=== PATIENT | female | born 1945 | race Caucasian/White ===

== ENCOUNTER 2022-01-17 07:24 | Emergency (ER) | payer MEDICARE ==
[2022-01-17 09:05] LABS: #Eosinphils 0.1 thou/uL (0.0-0.7); #Lymphocytes 0.7 thou/uL (1.20-3.40); #Monocytes 0.4 thou/uL (0.11-0.59); %Basophils 0.1 % (0.0-1.0); %Lymphocytes 12.6 % (21.0-51.0); %Monocytes 7.1 % (0.0-10.0); %Neutrophils 78.1 % (42.0-75.0); Hemoglobin 11.4 g/dL (12.0-16.0); Mean Corpuscular HGB CONC 33.6 g/dL (32.0-36.0); Mean Corpuscular Hemoglobin 34.2 pg (27.0-31.0); Mean Platelet Volume 6.6 fL (7.4-10.4); Platelet Count 339 10x3/uL (130-400); RBC Distribution Width 12.6 % (11.5-14.5); Red Blood Cell (RBC) Count 3.33 mill/uL (4.20-5.40); White Blood Cell (WBC) Count 5.2 10x3/uL (4.8-10.8)
[2022-01-17 09:31] LABS: ALT (SGPT) Less than 7 U/L (8-55); AST (SGOT) 17 U/L (5-34); Albumin 4.1 g/dL (3.4-4.8); Alkaline Phosphatase 137 U/L (40-110); Anion Gap 12 mmol/L (10-20); BUN (Urea Nitrogen) 16 mg/dL (9.8-20.1); Bilirubin, Total 0.5 mg/dL (0.2-1.2); Calc. Creatinine Clearance 0 mL/min (70-130); Calcium 9.3 mg/dL (7.8-10.44); Carbon Dioxide 24 mmol/L (23-31); Chloride 107 mmol/L (98-107); Estimated GFR 81; Glucose 104 mg/dL (83-110); Lipase 10 U/L (8-78); Magnesium 2.3 mg/dL (1.6-2.6); Potassium 4.1 mmol/L (3.5-5.1); Protein, Total 7.1 g/dL (5.8-8.1); Sodium 139 mmol/L (136-145)
[2022-01-17 10:33] LABS: Bacteria/HPF None Seen HPF (None Seen); Bilirubin Negative (Negative); Blood, Urine Trace (Negative); Clarity Clear (Clear); Glucose, Urine (Dipstick) Normal (Negative); Ketone, Urine Negative (Negative); Leukocyte 75 Leu/uL (Negative); Nitrite Negative (Negative); Protein, Urine (Dipstick) 10 mg/dL (Neg-Trace); Specific Gravity, Urine 1.014 (1.002-1.036); Urobilinogen Normal mg/dL (Less than 2); WBC/HPF 0-3 HPF (0-3)
[2022-01-17] MEDS ORDERED: Iopamidol-370 76% 500 ML 1 ML ONE (11:14)
[2022-01-17] MEDS ORDERED: Ketorolac Tromethamine 30 MG/ML VIAL ONE (11:34)
== END 2022-01-17 13:05 | disposition home or self-care (01) ==
LOC: ERS 07:24
DX: S22.060A Wedge compression fracture of T7-T8 vertebra, initial encounter for closed fracture (principal); M54.6 Pain in thoracic spine; R79.1 Abnormal coagulation profile; X58.XXXA Exposure to other specified factors, initial encounter
CPT/HCPCS: 36415; 71046; 71275; 72070; 72100; 80053; 81003; 81015; 83690; 83735; 83880; 84443; 84484; 85025; 85379; 93005; 96374; J1885; Q9967

== ENCOUNTER 2022-01-30 15:54 | Emergency (ER) | payer MEDICARE ==
[2022-01-30] MEDS ORDERED: Acetaminophen 325 MG TAB ONE (16:35)
[2022-01-30] MEDS ORDERED: traMADol HCl 50 MG TAB ONE (16:35)
== END 2022-01-30 18:07 | disposition home or self-care (01) ==
LOC: ERS 15:54
DX: S22.068A Other fracture of T7-T8 thoracic vertebra, initial encounter for closed fracture (principal); X58.XXXA Exposure to other specified factors, initial encounter
CPT/HCPCS: 99283

== ENCOUNTER 2022-02-05 07:39 | Outpatient (CLI) | payer MEDICARE | END 2022-02-05 07:40 | disposition home or self-care (01) | LOC: TBSIIMAG 07:39 | PROVIDERS: ATTEND Specialist | DX: S22.060A Wedge compression fracture of T7-T8 vertebra, initial encounter for closed fracture (principal); M80.08XA Age-related osteoporosis with current pathological fracture, vertebra(e), initial encounter for fracture | CPT/HCPCS: 72146 ==

== ENCOUNTER 2022-02-07 12:04 | Emergency (ER) | payer MEDICARE ==
[2022-02-07] MEDS ORDERED: Ondansetron ODT 4 MG TAB ONE ×2 (14:28→14:53)
[2022-02-07] MEDS ORDERED: HYDROcodone/Acetaminophen 5/325 mg Tablet ONE (14:28)
[2022-02-07] MEDS ORDERED: Ketorolac Tromethamine 30 MG/ML VIAL ONE (14:28)
== END 2022-02-07 16:07 | disposition home or self-care (01) ==
LOC: ERS 12:04
DX: S22.069G Unspecified fracture of T7-T8 vertebra, subsequent encounter for fracture with delayed healing (principal)
CPT/HCPCS: 96372; 99283; J1885; Q0162

== ENCOUNTER 2022-02-13 14:13 | Outpatient (CLI) | payer MEDICARE | END 2022-02-13 14:14 | disposition home or self-care (01) | LOC: BICMAMMO 14:13 | PROVIDERS: ATTEND Physician Assistant | DX: M80.00XA Age-related osteoporosis with current pathological fracture, unspecified site, initial encounter for fracture (principal) | CPT/HCPCS: 77080 ==

== ENCOUNTER 2022-03-21 04:43 | Emergency (ER) | payer MEDICARE | END 2022-03-21 07:05 | disposition left against medical advice (07) | LOC: ERS 04:43 | DX: Z53.21 Procedure and treatment not carried out due to patient leaving prior to being seen by health care provider (principal) ==

== ENCOUNTER 2022-03-27 15:27 | Emergency (ER) | payer MEDICARE ==
[~2022-03-27 15:27] MED LIST: Iopamidol-370 76% 500 ML 1 ML ONE
[2022-03-27 16:20] LABS: #Lymphocytes 1.1 thou/uL (1.20-3.40); #Monocytes 0.3 thou/uL (0.11-0.59); %Basophils 0.6 % (0.0-1.0); %Eosinophils 0.8 % (0.0-10.0); %Lymphocytes 30.5 % (21.0-51.0); %Monocytes 9.3 % (0.0-10.0); %Neutrophils 58.8 % (42.0-75.0); Hemoglobin 13.6 g/dL (12.0-16.0); Mean Corpuscular HGB CONC 34.9 g/dL (32.0-36.0); Mean Corpuscular Hemoglobin 35.5 pg (27.0-31.0); Platelet Count 281 10x3/uL (130-400); RBC Distribution Width 11.6 % (11.5-14.5); Red Blood Cell (RBC) Count 3.83 mill/uL (4.20-5.40); White Blood Cell (WBC) Count 3.5 10x3/uL (4.8-10.8)
[2022-03-27 16:46] LABS: ALT (SGPT) 10 U/L (8-55); AST (SGOT) 21 U/L (5-34); Albumin 4.7 g/dL (3.4-4.8); Alkaline Phosphatase 136 U/L (40-110); Anion Gap 16 mmol/L (10-20); BUN (Urea Nitrogen) 25 mg/dL (9.8-20.1); Bilirubin, Total 0.4 mg/dL (0.2-1.2); Calc. Creatinine Clearance 0 mL/min (70-130); Carbon Dioxide 21 mmol/L (23-31); Chloride 105 mmol/L (98-107); Estimated GFR 76; Globulin 3.1 g/dL (2.4-3.5); Glucose 98 mg/dL (83-110); Potassium 3.9 mmol/L (3.5-5.1); Protein, Total 7.8 g/dL (5.8-8.1); Sodium 138 mmol/L (136-145)
[2022-03-27] MEDS ORDERED: Diazepam 10 MG/2 ML SYRINGE ONE (16:54)
[2022-03-27] MEDS ORDERED: Acetaminophen 500 MG TAB ONE (16:54)
[2022-03-27] MEDS ORDERED: Ondansetron PF 4 MG/2 ML Vial ONE (16:54)
[2022-03-27] MEDS ORDERED: Ketorolac Tromethamine 30 MG/ML VIAL ONE (18:20)
== END 2022-03-27 19:22 | disposition home or self-care (01) ==
LOC: ERS 15:27
DX: M54.6 Pain in thoracic spine (principal); R07.9 Chest pain, unspecified; D72.819 Decreased white blood cell count, unspecified; I10 Essential (primary) hypertension
CPT/HCPCS: 36415; 71045; 71275; 74174; 80053; 83880; 84484; 85025; 93005; 96374; 96375; J1885; J2405; J3360; Q9967

== ENCOUNTER 2022-09-08 17:45 | Emergency (ER) | payer MEDICARE ==
[~2022-09-08 17:45] MED LIST changes: -Iopamidol-370 76% 500 ML 1 ML ONE; +Iopamidol-370 76% 500 ML MDV (1 ML CHARGE) ONE
[2022-09-08] MEDS ORDERED: fentaNYL 50 mcg/mL 1 mL Vial ONE (18:13)
[2022-09-08 18:22] LABS: #Eosinphils 0.1 thou/uL (0.0-0.7); #Monocytes 0.4 thou/uL (0.11-0.59); #Neutrophils 1.6 thou/uL (1.40-6.50); %Basophils 0.3 % (0.0-1.0); %Eosinophils 1.6 % (0.0-10.0); %Lymphocytes 32.5 % (21.0-51.0); %Monocytes 12.5 % (0.0-10.0); %Neutrophils 53.1 % (42.0-75.0); Hemoglobin 12.9 g/dL (12.0-16.0); Mean Corpuscular HGB CONC 35.1 g/dL (32.0-36.0); Mean Corpuscular Hemoglobin 34.2 pg (27.0-31.0); Mean Corpuscular Volume 97.3 fl (78.0-98.0); Mean Platelet Volume 8.5 fL (7.4-10.4); Platelet Count 237 10x3/uL (130-400); RBC Distribution Width 12.1 % (11.5-14.5); Red Blood Cell (RBC) Count 3.77 mill/uL (4.20-5.40); White Blood Cell (WBC) Count 3.1 10x3/uL (4.8-10.8)
[2022-09-08 18:44] LABS: ALT (SGPT) Less than 7 U/L (8-55); AST (SGOT) 17 U/L (5-34); Albumin 4.5 g/dL (3.4-4.8); Alkaline Phosphatase 123 U/L (40-110); Anion Gap 17 mmol/L (10-20); BUN (Urea Nitrogen) 19 mg/dL (9.8-20.1); Bilirubin, Total 0.3 mg/dL (0.2-1.2); Calc. Creatinine Clearance 0 mL/min (70-130); Calcium 9.7 mg/dL (7.8-10.44); Carbon Dioxide 24 mmol/L (23-31); Chloride 100 mmol/L (98-107); Estimated GFR 71; Globulin 2.7 g/dL (2.4-3.5); Glucose 98 mg/dL (83-110); Lipase 17 U/L (8-78); Potassium 3.9 mmol/L (3.5-5.1); Protein, Total 7.2 g/dL (5.8-8.1); Sodium 137 mmol/L (136-145)
== END 2022-09-08 20:33 | disposition home or self-care (01) ==
LOC: ERS 17:45
DX: S22.069A Unspecified fracture of T7-T8 vertebra, initial encounter for closed fracture (principal); I10 Essential (primary) hypertension; X58.XXXA Exposure to other specified factors, initial encounter
CPT/HCPCS: 71045; 71275; 80053; 83690; 83880; 84484; 85025; 93005; 96374; 99284; J3010; Q9967

== ENCOUNTER 2022-10-04 12:53 | Outpatient (CLI) | payer MEDICARE | END 2022-10-04 12:54 | disposition home or self-care (01) | LOC: BICMRI 12:53 | PROVIDERS: ATTEND Specialist | DX: S22.060G Wedge compression fracture of T7-T8 vertebra, subsequent encounter for fracture with delayed healing (principal); M54.14 Radiculopathy, thoracic region; M48.04 Spinal stenosis, thoracic region; M40.204 Unspecified kyphosis, thoracic region | CPT/HCPCS: 72146 ==

== ENCOUNTER 2022-10-10 10:22 | Emergency (ER) | payer MEDICARE ==
[2022-10-10] MEDS ORDERED: fentaNYL 50 mcg/mL 1 mL Vial ONE (10:49)
[2022-10-10 10:54] LABS: #Eosinphils 0.1 thou/uL (0.0-0.7); #Monocytes 0.4 thou/uL (0.11-0.59); #Neutrophils 1.9 thou/uL (1.40-6.50); %Basophils 0.6 % (0.0-1.0); %Eosinophils 4.1 % (0.0-10.0); %Lymphocytes 28.8 % (21.0-51.0); %Monocytes 12.2 % (0.0-10.0); %Neutrophils 54.3 % (42.0-75.0); Hematocrit 34.7 % (36.0-47.0); Mean Corpuscular HGB CONC 34.6 g/dL (32.0-36.0); Mean Corpuscular Hemoglobin 34.1 pg (27.0-31.0); Mean Corpuscular Volume 98.6 fl (78.0-98.0); Mean Platelet Volume 8.8 fL (7.4-10.4); Platelet Count 246 10x3/uL (130-400); RBC Distribution Width 12.5 % (11.5-14.5); Red Blood Cell (RBC) Count 3.52 mill/uL (4.20-5.40); White Blood Cell (WBC) Count 3.4 10x3/uL (4.8-10.8)
[2022-10-10 11:20] LABS: ALT (SGPT) Less than 7 U/L (8-55); AST (SGOT) 13 U/L (5-34); Albumin 4.5 g/dL (3.4-4.8); Alkaline Phosphatase 123 U/L (40-110); Anion Gap 13 mmol/L (10-20); BUN (Urea Nitrogen) 18 mg/dL (9.8-20.1); Bilirubin, Total 0.3 mg/dL (0.2-1.2); Calc. Creatinine Clearance 0 mL/min (70-130); Calcium 9.7 mg/dL (7.8-10.44); Carbon Dioxide 26 mmol/L (23-31); Chloride 106 mmol/L (98-107); Estimated GFR 72; Globulin 2.4 g/dL (2.4-3.5); Glucose 93 mg/dL (83-110); Potassium 3.9 mmol/L (3.5-5.1); Protein, Total 6.9 g/dL (5.8-8.1); Sodium 141 mmol/L (136-145)
[2022-10-10 11:59] LABS: PTT 26.8 sec (22.9-36.1); Prothrombin Time 13.3 sec (12.0-14.7)
[2022-10-10 12:31] LABS: Bacteria/HPF Rare-Few HPF (None Seen); Bilirubin Negative (Negative); Blood, Urine Negative (Negative); CAUTI Indications for Culture Pelvic or flank pain; Clarity Extra Turbid (Clear); Glucose, Urine (Dipstick) Normal (Negative); Ketone, Urine Negative (Negative); Leukocyte Negative Leu/uL (Negative); Nitrite Negative (Negative); Protein, Urine (Dipstick) 50 mg/dL (Neg-Trace); RBC/HPF 0-3 HPF (0-3); Specific Gravity, Urine 1.022 (1.002-1.036); Squamous Epithelial 0-3 HPF (0-3); Urobilinogen Normal mg/dL (Less than 2); WBC/HPF None Seen HPF (0-3)
[2022-10-10 12:32] LABS: Urine Culture Reflex No No
== END 2022-10-10 13:44 | disposition home or self-care (01) ==
LOC: ERS 10:22
DX: S22.062A Unstable burst fracture of T7-T8 vertebra, initial encounter for closed fracture (principal); G20 Parkinson's disease; I10 Essential (primary) hypertension
CPT/HCPCS: 71045; 71275; 74174; 81001; 84484; 85610; 85652; 85730; 86140; 93005; J3010; 80053; 84443; 85025; 96374; Q9967

== ENCOUNTER 2022-10-16 00:37 | Emergency (ER) | payer MEDICARE ==
[2022-10-16] MEDS ORDERED: fentaNYL 50 mcg/mL 1 mL Vial ONE (01:54)
[2022-10-16] MEDS ORDERED: Diazepam 5 MG TAB ONE (01:59)
[2022-10-16] MEDS ORDERED: Lidocaine 4% Patch TD SCH (03:15)
[2022-10-16] MEDS ORDERED: Ketorolac Tromethamine 30 MG/ML VIAL ONE (03:29)
== END 2022-10-16 03:43 | disposition home or self-care (01) ==
LOC: ERS 00:37
DX: M54.9 Dorsalgia, unspecified (principal); G20 Parkinson's disease; I10 Essential (primary) hypertension
CPT/HCPCS: 71045; J3010; 96374; 96375; J1885

== ENCOUNTER 2022-11-07 13:47 | Outpatient (CLI) | payer MEDICARE | END 2022-11-07 13:48 | disposition home or self-care (01) | LOC: RAD 13:47 | PROVIDERS: ATTEND Nurse Practitioner Family | DX: S22.069G Unspecified fracture of T7-T8 vertebra, subsequent encounter for fracture with delayed healing (principal); M43.8X4 Other specified deforming dorsopathies, thoracic region | CPT/HCPCS: 72120 ==

== ENCOUNTER 2022-11-11 12:14 | Inpatient (IN) | payer MEDICARE ==
[2022-11-11] MEDS ORDERED: fentaNYL 50 mcg/mL 1 mL Vial ONE ×2 (13:02→16:40)
[2022-11-11 13:41] LABS: #Monocytes 0.2 thou/uL (0.11-0.59); #Neutrophils 1.8 thou/uL (1.40-6.50); %Eosinophils 1.5 % (0.0-10.0); %Monocytes 8.5 % (0.0-10.0); %Neutrophils 69.2 % (42.0-75.0); Hematocrit 32.9 % (36.0-47.0); Hemoglobin 11.2 g/dL (12.0-16.0); Mean Corpuscular Hemoglobin 34.1 pg (27.0-31.0); Mean Corpuscular Volume 100.3 fl (78.0-98.0); Mean Platelet Volume 8.8 fL (7.4-10.4); Platelet Count 267 10x3/uL (130-400); RBC Distribution Width 12.2 % (11.5-14.5); Red Blood Cell (RBC) Count 3.28 mill/uL (4.20-5.40); White Blood Cell (WBC) Count 2.6 10x3/uL (4.8-10.8)
[2022-11-11 14:12] LABS: ALT (SGPT) Less than 7 U/L (8-55); AST (SGOT) 16 U/L (5-34); Albumin 4.1 g/dL (3.4-4.8); Alkaline Phosphatase 115 U/L (40-110); Anion Gap 12 mmol/L (10-20); BUN (Urea Nitrogen) 21 mg/dL (9.8-20.1); Bilirubin, Total 0.2 mg/dL (0.2-1.2); Calc. Creatinine Clearance 0 mL/min (70-130); Calcium 9.5 mg/dL (7.8-10.44); Carbon Dioxide 26 mmol/L (23-31); Chloride 104 mmol/L (98-107); Estimated GFR 84; Globulin 2.2 g/dL (2.4-3.5); Glucose 95 mg/dL (83-110); Potassium 4.4 mmol/L (3.5-5.1); Protein, Total 6.3 g/dL (5.8-8.1); Sodium 138 mmol/L (136-145)
[2022-11-11 14:18] LABS: Troponin I 0.022 ng/mL (< 0.028)
[2022-11-11 14:49] LABS: Bacteria/HPF None Seen HPF (None Seen); Bilirubin Negative (Negative); Blood, Urine Trace (Negative); CAUTI Indications for Culture Pelvic or flank pain; Clarity Clear (Clear); Glucose, Urine (Dipstick) Normal (Negative); Ketone, Urine Negative (Negative); Leukocyte 25 Leu/uL (Negative); Nitrite Negative (Negative); Protein, Urine (Dipstick) 70 mg/dL (Neg-Trace); Specific Gravity, Urine 1.025 (1.002-1.036); Squamous Epithelial 0-3 HPF (0-3); Urine Culture Reflex No No; Urobilinogen Normal mg/dL (Less than 2); WBC/HPF 0-3 HPF (0-3); pH, Urine 6.5 (5.0-9.0)
[2022-11-11] MEDS ORDERED: Acetaminophen 325 MG TAB ONE (16:41)
[2022-11-11] MEDS ORDERED: Senokot S 8.6-50 MG TAB PO PRN (18:29)
[2022-11-11] MEDS ORDERED: Acetaminophen 650 MG Suppository PR PRN (18:29)
[2022-11-11] MEDS ORDERED: Acetaminophen 325 MG TAB PO PRN (18:29)
[2022-11-11] MEDS ORDERED: fentaNYL 50 mcg/hour Patch TD SCH (18:30)
[2022-11-11] MEDS ORDERED: Metoclopramide HCl 10 MG/2 ML VIAL IVP PRN (18:32)
[2022-11-11] MEDS ORDERED: Donepezil HCl 5 MG TAB PO SCH (21:00)
[2022-11-11] MEDS: Famotidine 20 MG TAB PO SCH (21:32)
[2022-11-11] MEDS: Sertraline 100 MG TAB PO SCH (21:33)
[2022-11-12 05:53] LABS: #Eosinphils 0.1 thou/uL (0.0-0.7); #Monocytes 0.3 thou/uL (0.11-0.59); #Neutrophils 1.6 thou/uL (1.40-6.50); %Basophils 0.3 % (0.0-1.0); %Eosinophils 2.8 % (0.0-10.0); %Lymphocytes 30.4 % (21.0-51.0); %Monocytes 10.1 % (0.0-10.0); %Neutrophils 56.4 % (42.0-75.0); Hematocrit 34.5 % (36.0-47.0); Hemoglobin 11.5 g/dL (12.0-16.0); Mean Corpuscular HGB CONC 33.3 g/dL (32.0-36.0); Mean Corpuscular Hemoglobin 33.4 pg (27.0-31.0); Mean Corpuscular Volume 100.3 fl (78.0-98.0); Mean Platelet Volume 8.7 fL (7.4-10.4); Platelet Count 257 10x3/uL (130-400); RBC Distribution Width 12.3 % (11.5-14.5); Red Blood Cell (RBC) Count 3.44 mill/uL (4.20-5.40); White Blood Cell (WBC) Count 2.9 10x3/uL (4.8-10.8)
[2022-11-12 06:18] LABS: Anion Gap 13 mmol/L (10-20); BUN (Urea Nitrogen) 18 mg/dL (9.8-20.1); Calc. Creatinine Clearance 54 mL/min (70-130); Calcium 9.9 mg/dL (7.8-10.44); Carbon Dioxide 27 mmol/L (23-31); Chloride 105 mmol/L (98-107); Estimated GFR 83; Glucose 90 mg/dL (83-110); Potassium 4.1 mmol/L (3.5-5.1); Sodium 141 mmol/L (136-145)
[2022-11-12] MEDS: Sertraline 100 MG TAB PO SCH ×2 (11:25→20:58)
[2022-11-12] MEDS: Famotidine 20 MG TAB PO SCH ×2 (11:25→20:58)
[2022-11-12] MEDS: clonazePAM 0.5 MG TAB PO PRN (11:25)
[2022-11-12] MEDS ORDERED: clonazePAM 0.5 MG TAB PO PRN (12:00)
[2022-11-12] MEDS ORDERED: Diazepam 5 MG TAB PO PRN (16:23)
[2022-11-12] MEDS ORDERED: Lorazepam 0.5 MG TAB PO PRN (17:04)
[2022-11-12] MEDS: Primidone 250 MG TAB PO SCH (20:57)
[2022-11-12] MEDS ORDERED: Cyanocobalamin (Vitamin B-12) 1,000 MCG TAB PO SCH (21:00)
[2022-11-12] MEDS ORDERED: Mirtazapine 15 MG Soltab PO SCH (21:00)
[2022-11-12] MEDS ORDERED: Carbidopa/Levodopa CR 50-200 mg Tablet PO SCH (22:00)
[2022-11-13] MEDS: clonazePAM 0.5 MG TAB PO PRN (06:24)
[2022-11-13 07:27] VITALS: BP 113/62; TEMP 98.7
[2022-11-13] MEDS: Carbidopa/Levodopa CR 50-200 mg Tablet PO SCH ×2 (08:36→11:24)
[2022-11-13] MEDS: Famotidine 20 MG TAB PO SCH (08:36)
[2022-11-13] MEDS: Sertraline 100 MG TAB PO SCH (08:36)
[2022-11-13 08:57] LABS: #Eosinphils 0.1 thou/uL (0.0-0.7); #Monocytes 0.4 thou/uL (0.11-0.59); #Neutrophils 3.3 thou/uL (1.40-6.50); %Basophils 0.2 % (0.0-1.0); %Eosinophils 1.3 % (0.0-10.0); %Lymphocytes 17.2 % (21.0-51.0); %Monocytes 8.4 % (0.0-10.0); %Neutrophils 72.7 % (42.0-75.0); Hematocrit 35.3 % (36.0-47.0); Hemoglobin 11.6 g/dL (12.0-16.0); Mean Corpuscular HGB CONC 32.9 g/dL (32.0-36.0); Mean Corpuscular Hemoglobin 33.7 pg (27.0-31.0); Mean Corpuscular Volume 102.6 fl (78.0-98.0); Platelet Count 266 10x3/uL (130-400); RBC Distribution Width 12.4 % (11.5-14.5); Red Blood Cell (RBC) Count 3.44 mill/uL (4.20-5.40); White Blood Cell (WBC) Count 4.5 10x3/uL (4.8-10.8)
[2022-11-13] MEDS ORDERED: Calcitonin,Salmon,Synthetic 200 Units NASAL PUMP 3.7 ML L NARE SCH (09:00)
[2022-11-13 09:26] LABS: Anion Gap 12 mmol/L (10-20); BUN (Urea Nitrogen) 25 mg/dL (9.8-20.1); Calc. Creatinine Clearance 50 mL/min (70-130); Calcium 9.5 mg/dL (7.8-10.44); Carbon Dioxide 27 mmol/L (23-31); Chloride 104 mmol/L (98-107); Estimated GFR 75; Glucose 109 mg/dL (83-110); Sodium 139 mmol/L (136-145)
[2022-11-13] MEDS: Primidone 250 MG TAB PO SCH (10:20)
[2022-11-13] MEDS ORDERED: Donepezil HCl 10 MG TAB PO SCH (11:30)
[2022-11-13] MEDS ORDERED: Carbidopa/Levodopa CR 50-200 mg Tablet PO SCH (21:00)
[2022-11-13] MEDS ORDERED: Lidocaine 4% Patch TD SCH (21:00)
[2022-11-14] MEDS ORDERED: Transdermal Patch Removal TOP SCH (09:00)
[2022-11-14] MEDS ORDERED: Calcitonin,Salmon,Synthetic 200 Units NASAL PUMP 3.7 ML R NARE SCH (09:00)
== END 2022-11-13 14:53 | disposition home or self-care (01) | DRG 544 ==
LOC: ERS 12:14 → T4-B 17:19 → OBSVTOIN 11-12 17:04
PROVIDERS: ADMIT Internal Medicine; ATTEND Internal Medicine
DX: M80.08XA Age-related osteoporosis with current pathological fracture, vertebra(e), initial encounter for fracture (principal); S22.060D Wedge compression fracture of T7-T8 vertebra, subsequent encounter for fracture with routine healing; I10 Essential (primary) hypertension; G20 Parkinson's disease; F03.90 Unspecified dementia, unspecified severity, without behavioral disturbance, psychotic disturbance, mood disturbance, and anxiety; F41.9 Anxiety disorder, unspecified; Z66 Do not resuscitate; M48.04 Spinal stenosis, thoracic region; D72.819 Decreased white blood cell count, unspecified; D64.9 Anemia, unspecified; M40.204 Unspecified kyphosis, thoracic region; N18.2 Chronic kidney disease, stage 2 (mild); I12.9 Hypertensive chronic kidney disease with stage 1 through stage 4 chronic kidney disease, or unspecified chronic kidney disease; Z98.890 Other specified postprocedural states; Z88.5 Allergy status to narcotic agent; Z88.2 Allergy status to sulfonamides; Z88.8 Allergy status to other drugs, medicaments and biological substances; Z79.899 Other long term (current) drug therapy
CPT/HCPCS: 36415; 72128; 72131; 72146; 80048; 80053; 81001; 84484; 85025; 93005; 96372; 96374; G0378; J1650; J3010

== ENCOUNTER 2022-11-17 11:42 | Emergency (ER) | payer MEDICARE | END 2022-11-17 14:51 | disposition home or self-care (01) | LOC: ERS 11:42 | DX: Z76.0 Encounter for issue of repeat prescription (principal); M54.50 Low back pain, unspecified | CPT/HCPCS: 99283 ==

== ENCOUNTER 2022-11-20 11:09 | Emergency (ER) | payer MEDICARE ==
[2022-11-20 13:03] LABS: #Eosinphils 0.1 thou/uL (0.0-0.7); #Monocytes 0.3 thou/uL (0.11-0.59); #Neutrophils 2.3 thou/uL (1.40-6.50); %Basophils 0.3 % (0.0-1.0); %Eosinophils 1.8 % (0.0-10.0); %Lymphocytes 18.5 % (21.0-51.0); %Monocytes 10.2 % (0.0-10.0); %Neutrophils 69.2 % (42.0-75.0); Hematocrit 32.9 % (36.0-47.0); Hemoglobin 11.4 g/dL (12.0-16.0); Mean Corpuscular HGB CONC 34.7 g/dL (32.0-36.0); Mean Corpuscular Hemoglobin 34.3 pg (27.0-31.0); Mean Corpuscular Volume 99.1 fl (78.0-98.0); Mean Platelet Volume 8.9 fL (7.4-10.4); Platelet Count 229 10x3/uL (130-400); RBC Distribution Width 12.1 % (11.5-14.5); Red Blood Cell (RBC) Count 3.32 mill/uL (4.20-5.40); White Blood Cell (WBC) Count 3.3 10x3/uL (4.8-10.8)
[2022-11-20 13:07] LABS: Bacteria/HPF None Seen HPF (None Seen); Bilirubin Negative (Negative); Blood, Urine 2+ (Negative); CAUTI Indications for Culture Alt mental st,lethar; Clarity Clear (Clear); Glucose, Urine (Dipstick) Normal (Negative); Ketone, Urine Trace mg/dL (Negative); Leukocyte Negative Leu/uL (Negative); Nitrite Negative (Negative); Protein, Urine (Dipstick) 50 mg/dL (Neg-Trace); RBC/HPF 0-3 HPF (0-3); Squamous Epithelial None Seen HPF (0-3); Urobilinogen Normal mg/dL (Less than 2); WBC/HPF 0-3 HPF (0-3); pH, Urine 5.5 (5.0-9.0)
[2022-11-20 13:09] LABS: Urine Culture Reflex No No
[2022-11-20 13:39] LABS: ALT (SGPT) Less than 7 U/L (8-55); AST (SGOT) 18 U/L (5-34); Albumin 4.2 g/dL (3.4-4.8); Alkaline Phosphatase 119 U/L (40-110); Anion Gap 14 mmol/L (10-20); BUN (Urea Nitrogen) 27 mg/dL (9.8-20.1); Bilirubin, Total 0.2 mg/dL (0.2-1.2); Calc. Creatinine Clearance 0 mL/min (70-130); Calcium 9.8 mg/dL (7.8-10.44); Carbon Dioxide 24 mmol/L (23-31); Chloride 105 mmol/L (98-107); Estimated GFR 79; Globulin 2.6 g/dL (2.4-3.5); Glucose 119 mg/dL (83-110); Protein, Total 6.8 g/dL (5.8-8.1); Sodium 139 mmol/L (136-145)
== END 2022-11-20 15:00 | disposition home or self-care (01) ==
LOC: ERS 11:09
DX: R53.83 Other fatigue (principal); M54.50 Low back pain, unspecified; G89.29 Other chronic pain
CPT/HCPCS: 36415; 80053; 81001; 85025; 99283

== ENCOUNTER 2022-12-04 11:20 | Emergency (ER) | payer MEDICARE ==
[2022-12-04 12:34] LABS: #Monocytes 0.2 thou/uL (0.11-0.59); #Neutrophils 3.5 thou/uL (1.40-6.50); %Basophils 0.2 % (0.0-1.0); %Eosinophils 0.9 % (0.0-10.0); %Lymphocytes 13.2 % (21.0-51.0); %Monocytes 5.3 % (0.0-10.0); %Neutrophils 80.2 % (42.0-75.0); Hematocrit 32.8 % (36.0-47.0); Hemoglobin 11.2 g/dL (12.0-16.0); Mean Corpuscular HGB CONC 34.1 g/dL (32.0-36.0); Mean Corpuscular Hemoglobin 34.1 pg (27.0-31.0); Mean Platelet Volume 8.8 fL (7.4-10.4); Platelet Count 259 10x3/uL (130-400); RBC Distribution Width 12.5 % (11.5-14.5); Red Blood Cell (RBC) Count 3.28 mill/uL (4.20-5.40); White Blood Cell (WBC) Count 4.4 10x3/uL (4.8-10.8)
[2022-12-04 13:03] LABS: ALT (SGPT) Less than 7 U/L (8-55); AST (SGOT) 14 U/L (5-34); Albumin 4.1 g/dL (3.4-4.8); Alkaline Phosphatase 105 U/L (40-110); Anion Gap 14 mmol/L (10-20); BUN (Urea Nitrogen) 22 mg/dL (9.8-20.1); Bilirubin, Total 0.3 mg/dL (0.2-1.2); Calc. Creatinine Clearance 0 mL/min (70-130); Calcium 8.8 mg/dL (7.8-10.44); Carbon Dioxide 25 mmol/L (23-31); Chloride 105 mmol/L (98-107); Estimated GFR 78; Globulin 2.4 g/dL (2.4-3.5); Glucose 177 mg/dL (83-110); Lipase 32 U/L (8-78); Potassium 3.9 mmol/L (3.5-5.1); Protein, Total 6.5 g/dL (5.8-8.1); Sodium 140 mmol/L (136-145)
[2022-12-04 13:18] LABS: Bilirubin Negative (Negative); Blood, Urine 2+ (Negative); CAUTI Indications for Culture Fever or rigors; Clarity Extra Turbid (Clear); Glucose, Urine (Dipstick) Normal (Negative); Ketone, Urine Negative (Negative); Leukocyte 500 Leu/uL (Negative); Nitrite Negative (Negative); Protein, Urine (Dipstick) 50 mg/dL (Neg-Trace); RBC/HPF 0-3 HPF (0-3); Specific Gravity, Urine 1.026 (1.002-1.036); Squamous Epithelial 0-3 HPF (0-3); Urobilinogen Normal mg/dL (Less than 2); WBC/HPF Greater than 50 HPF (0-3); pH, Urine 5.5 (5.0-9.0)
[2022-12-04 13:31] LABS: Bacteria/HPF 2+ HPF (None Seen)
[2022-12-04 13:33] LABS: Urine Culture Reflex Yes Yes
[2022-12-04] MEDS ORDERED: cefTRIAXone (ROCEPHIN) 1 GM VIAL ONE (14:53)
[2022-12-04] MEDS ORDERED: Iopamidol-370 76% 500 ML MDV (1 ML CHARGE) ONE (15:27)
== END 2022-12-04 15:19 | disposition home or self-care (01) ==
LOC: ERS 11:20
DX: N39.0 Urinary tract infection, site not specified (principal); R10.31 Right lower quadrant pain; G20.A1 Parkinson's disease without dyskinesia, without mention of fluctuations
CPT/HCPCS: 36415; 74177; 80053; 81001; 83690; 85025; 87077; 87086; 87186; 96374; J0696; Q9967

== ENCOUNTER 2022-12-20 10:32 | Emergency (ER) | payer MEDICARE ==
[2022-12-20] MEDS ORDERED: Ketorolac Tromethamine 30 MG/ML VIAL ONE (12:02)
== END 2022-12-20 14:23 | disposition home or self-care (01) ==
LOC: ERS 10:32
DX: S32.591A Other specified fracture of right pubis, initial encounter for closed fracture (principal); R29.6 Repeated falls; W10.9XXA Fall (on) (from) unspecified stairs and steps, initial encounter
CPT/HCPCS: 72170; 96372; J1885